=== PATIENT | female | born 1995 | race Caucasian/White ===

== ENCOUNTER 2016-10-04 11:50 | Emergency (ER) | payer OTHER ==
[~2016-10-04] VITALS: Ht 160 cm; Wt 80.1 kg
[2016-10-04 11:58] VITALS: TEMP 37; Ht 160 cm; Wt 80.1 kg
[2016-10-04] MEDS ORDERED: SODIUM CHLORIDE 0.9% 1000ML 1,000 ML IV STA (13:08)
[2016-10-04] MEDS ORDERED: LORAZEPAM 2 MG/ML 1 ML VIAL IV STA (13:08)
[2016-10-04] MEDS ORDERED: ONDANSETRON INJ 2 MG/ML 2 ML VIAL IV STA (13:08)
[2016-10-04] MEDS ORDERED: MOME6000 NAE (13:15)
[2016-10-04] MEDS ORDERED: PENI250T3 PO (13:15)
[2016-10-04] MEDS ORDERED: CETI10TA84 PO (13:15)
[2016-10-04 13:17] LABS: BASO % 0.1 %; BASO ABS # 0.01 K/uL (0-0.2); COMPLETE YES; EOS % 0.3 %; HEMATOCRIT 41.2 % (37-47); IG% 0.3 %; LYMPH % 8.4 %; LYMPH ABS # 1.08 K/uL (1.2-3.4); MEAN CELL VOLUME 88.6 fL (80-100); MEAN PLATELET VOLUME 8.4 fL (7.4-10.4); MONO % 4.5 %; NEUT % 86.4 %; PLATELET COUNT 617 K/uL (130-400); RED BLOOD COUNT 4.65 M/uL (4.2-5.4)
[2016-10-04 13:34] LABS: BUN/CREATININE RATIO 22.8 (10-20); CALCIUM 9.3 mg/dl (8.5-10.1); CREATININE 0.68 mg/dl (0.60-1.20); POTASSIUM 3.8 mmol/L (3.5-5.1)
[2016-10-04] MEDS ORDERED: ONDA4TAB10 SL (14:39)
--- NOTE | 2016-10-04 14:40 | EMERGENCY ROOM VISIT NOTE ---
History First contact with patient: 13:00 Chief Complaint: VOMITING Stated Complaint: VOMITING, TIRED, LIGHTHEADED HX: NO SPLEEN Nursing Triage Summary: i WOKE UP VOMITING. I HAD A FEVER. I HAD MY SPLEEN REMOVED BECAUSE I HAVE A BLEEDING DISORDER. TEMP IN TRIAGE 37. PT STATES SHE DIDNT TAKE ANYTHING FOR THE FEVER History of Present Illness The patient is a 21 year old female who presents to the Emergency Room with complaints of vomiting which started at 2 AM this morning. The patient denies any abdominal pain or any diarrhea. She states her temp has been running 99.7. The patient denies any urinary symptoms of frequency, urgency, dysuria or hematuria. The patient has been able to keep down some fluids. She has been drinking Gatorade. The patient states she feels a little anxious feels a little short of breath due to the anxiety. The patient denies any chest pain. The patient denies any vaginal discharge. The patient denies . 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 Review of Systems 10 system review was performed and was negative unless stated otherwise history of present illness. Past Medical/Surgical History Splenectomy Social History Smoking Status: Never Smoker Alcohol Use: occasionally Drug Use: none Marital Status: single Housing Status: lives with roommate Occupation Status: [employer] student Current/Historical Medications Scheduled Cetirizine (Zyrtec), 5 MG PO DAILY Mometasone Furoate (Nasal) (Mometasone Furoate), 1 SPRAY BRAULIO BID Penicillin V Potassium (Veetids), 250 MG PO BID Allergies Coded Allergies: No Known Allergies (Unverified , 10/04/16) Physical Exam Vital Signs Date Time Temp Pulse Resp B/P Pulse Ox O2 Delivery O2 Flow Rate FiO2 10/04/16 14:28 84 16 99 Room Air 10/04/16 11:58 37.0 110 18 110/65 96 Room Air Physical Exam GENERAL: 21-year-old white female appears in no acute distress. MENTAL Status: Alert and oriented 3. The patient appears slightly anxious. EYES: No icterus noted MOUTH: Mucosa is moist NECK: Supple, no lymphadenopathy noted. No carotid bruits noted. LUNGS: Clear auscultation without wheezes rales or rhonchi. CARDIAC: Regular rate and rhythm without murmur. Pulses is full and equal throughout. BACK: No CVA tenderness noted. ABDOMEN: Positive bowel sounds all 4 quadrants. Soft, nontender to palpation without organomegaly or masses. EXTREMITIES: No cyanosis or edema noted. Medical Decision & Procedures Laboratory Results 10/04/16 13:05 Red Blood Count 4.65, Mean Corpuscular Volume 88.6, Mean Corpuscular Hemoglobin 31.0, Mean Corpuscular Hemoglobin Concent 35.0, Mean Platelet Volume 8.4, Neutrophils (%) (Auto) 86.4, Lymphocytes (%) (Auto) 8.4, Monocytes (%) (Auto) 4.5, Eosinophils (%) (Auto) 0.3, Basophils (%) (Auto) 0.1, Neutrophils # (Auto) 11.06, Lymphocytes # (Auto) 1.08, Monocytes # (Auto) 0.57, Eosinophils # (Auto) 0.04, Basophils # (Auto) 0.01 10/04/16 13:05 Test 10/04/16 13:05 White Blood Count 12.80 K/uL (4.8-10.8) Red Blood Count 4.65 M/uL (4.2-5.4) Hemoglobin 14.4 g/dL (12.0-16.0) Hematocrit 41.2 % (37-47) Mean Corpuscular Volume 88.6 fL (80-100) Mean Corpuscular Hemoglobin 31.0 pg (25-34) Mean Corpuscular Hemoglobin Concent 35.0 g/dl (32-36) Platelet Count 617 K/uL (130-400) Mean Platelet Volume 8.4 fL (7.4-10.4) Neutrophils (%) (Auto) 86.4 % Lymphocytes (%) (Auto) 8.4 % Monocytes (%) (Auto) 4.5 % Eosinophils (%) (Auto) 0.3 % Basophils (%) (Auto) 0.1 % Neutrophils # (Auto) 11.06 K/uL (1.4-6.5) Lymphocytes # (Auto) 1.08 K/uL (1.2-3.4) Monocytes # (Auto) 0.57 K/uL (0.11-0.59) Eosinophils # (Auto) 0.04 K/uL (0-0.5) Basophils # (Auto) 0.01 K/uL (0-0.2) RDW Standard Deviation 47.5 fL (36.4-46.3) RDW Coefficient of Variation 14.7 % (11.5-14.5) Immature Granulocyte % (Auto) 0.3 % Immature Granulocyte # (Auto) 0.04 K/uL (0.00-0.02) Anion Gap 12.0 mmol/L (3-11) Est Creatinine Clear Calc Drug Dose 132.2 ml/min Estimated GFR () 145.9 Estimated GFR (Non- 125.9 BUN/Creatinine Ratio 22.8 (10-20) Calcium Level 9.3 mg/dl (8.5-10.1) Total Bilirubin 0.7 mg/dl (0.2-1) Direct Bilirubin 0.1 mg/dl (0-0.2) Aspartate Amino Transf (AST/SGOT) 12 U/L (15-37) Alanine Aminotransferase (ALT/SGPT) 21 U/L (12-78) Alkaline Phosphatase 100 U/L (45-117) Total Protein 7.8 gm/dl (6.4-8.2) Albumin 4.1 gm/dl (3.4-5.0) Lipase 106 U/L (73-393) Medications Administered Medications (Trade) Dose Ordered Sig/Lior Route Start Time Stop Time Status Last Admin Dose Admin Sodium Chloride (Nss 1000ml) 1,000 ml @ 999 mls/hr Q1H1M STAT IV 10/04/16 13:08 2 14:08 DC 10/04/16 13:22 999 MLS/HR Ondansetron HCl (Zofran Inj) 4 mg NOW STAT IV 10/04/16 13:08 10/04/16 13:10 DC 10/04/16 13:23 4 MG Lorazepam (Ativan Inj) 0.5 mg NOW STAT IV 10/04/16 13:08 10/04/16 13:10 DC 10/04/16 13:24 0.5 MG ED Course The patient was evaluated. IV access was obtained. The patient was given 1 L normal saline wide-open. The patient was given Zofran 4 mg IV and Ativan 0.5 mg IV. CBC and differential, renal profile, LFTs and lipase levels were ordered. Urinalysis was ordered. Labs are reviewed. Patient's white count was slightly elevated at 12,000. The patient's platelet count was elevated 617 otherwise unremarkable. Patient was reevaluated and was feeling much better. The patient was discharged home in stable condition. Medical Decision Differential diagnosis include viral gastroenteritis, acute cholecystitis, reflux, bacterial gastritis, Impression Primary Impression: Gastroenteritis Departure Information Dispostion Home / Self-Care Condition GOOD Prescriptions Ondasetron Odt (ZOFRAN ODT) 4 Mg Tab 4 MG SL Q6H for Nausea, #10 TAB Prov: Jerri Mccord PA-C 10/04/16 Referrals No Doctor, Assigned (PCP) Forms HOME CARE DOCUMENTATION FORM, IMPORTANT VISIT INFORMATION Patient Instructions ED Nausea Vomiting, [facility] Additional Instructions Push fluids. Follow bland diet. Advance diet slowly as tolerated. Take Zofran as needed for nausea. If symptoms persist or worsen, follow-up with family physician or return to ER.
[2016-10-04 14:55] VITALS: BP 130/79; PULSE 85; O2SAT 99
== END 2016-10-04 14:57 | disposition home or self-care (01) ==
LOC: C.EDB 11:52 → C.EDA 14:57
DX: K52.9 Noninfective gastroenteritis and colitis, unspecified (principal)